=== PATIENT | male | born 1975 | race Caucasian/White ===

== ENCOUNTER 2024-07-22 13:45 | Emergency (ER) | payer OTHER, SELFPAY ==
[2024-07-22 13:54] VITALS: BP 125/79; PULSE 73; TEMP 36.8; O2SAT 96; BMI 25.1
--- NOTE | 2024-07-22 14:04 | ED.GENADUL1 ---
HPI HPI - General Adult General Chief complaint: Wound/Laceration Stated complaint: FINGER LACERATION - [facility] Time Seen by Provider: 07/22/24 13:48 Mode of arrival: walk-in History of Present Illness HPI narrative: The patient is a 48-year-old male who presents to the emergency department today for evaluation concerns for finger laceration. He endorses he cut his finger on a piece of metal while at work. He does not know the date of his last tetanus. Denies any paresthesias, weakness, loss of movement to the affected digit. History of diabetes and states he is on metformin for this. Otherwise denies any significant medical or surgical history. Related Data Home Medications ?Medication ?Instructions ?Recorded ?Confirmed aripiprazole 5 mg tablet mg 07/22/24 atorvastatin 10 mg tablet mg 07/22/24 celecoxib 200 mg capsule mg 07/22/24 losartan 50 mg tablet mg 07/22/24 metformin 1,000 mg tablet mg 07/22/24 omeprazole 20 mg capsule,delayed mg 07/22/24 release Allergies Allergy/AdvReac Type Severity Reaction Status Date / Time aspirin Allergy Swelling Verified 07/22/24 13:54 of Lip/Tongue/Throat Review of Systems ROS Status of ROS 10 or more systems reviewed and unremarkable except as noted in history and below PFSH PFSH Social History Little interest or pleasure in doing things: not at all Feeling down, depressed, or hopeless: not at all Exam Narrative Exam Narrative: Constituational: Awake/ alert, no apparent distress, well hydrated HENMT: normocephalic, external ears normal, moist oral mucous membranes and oropharynx normal Eyes: EOMI and conjunctivae normal Neck: ROM intact Chest: inspection of chest normal Respiratory: Normal respiratory effort MSK:+approx 2cm C shapped laceration to dorsal aspect of PIP of digit of R hand, gross/fine motor movement intact to all digits of R hand, +NVI Skin: To second digit of R hand as above Neuro: no focal deficits Psych: mental status grossly normal Constitutional Vital Signs, click to edit/add: Last Vital Signs Temp 98.3 F 07/22/24 13:54 Pulse 73 07/22/24 13:54 Resp 16 07/22/24 13:54 BP 125/79 07/22/24 13:54 Pulse Ox 96 07/22/24 13:54 O2 Del Method Room Air 07/22/24 13:54 Course Vital Signs Vital signs: Vital Signs Temperature 98.3 F 07/22/24 13:54 Pulse Rate 73 07/22/24 13:54 Respiratory Rate 16 07/22/24 13:54 Blood Pressure 125/79 07/22/24 13:54 Pulse Oximetry 96 07/22/24 13:54 Oxygen Delivery Method Room Air 07/22/24 13:54 Temperature 98.3 F 07/22/24 13:54 Pulse Rate 73 07/22/24 13:54 Respiratory Rate 16 07/22/24 13:54 Blood Pressure 125/79 07/22/24 13:54 Pulse Oximetry 96 07/22/24 13:54 Oxygen Delivery Method Room Air 07/22/24 13:54 Medical Decision Making MDM Narrative Medical decision making narrative: Patient is a well-appearing 48-year-old male who presented to the emergency department today for evaluation concerns for a laceration to his right index finger 2/2 cutting it on a piece of metal while at work today. Initial examination without any concerning neurovascular motor findings on exam. Wound care provided and subsequent wound closure and hemostasis achieved with placement of sutures. No clinical evidence of infection or foreign body present on wound. Please see procedure note above for details. Discussed this with the patient including recommendations for supportive care following finger laceration and placement of sutures. Discussed recommendations for suture removal. Tetanus updated in the ER today. Advised on follow-up with patient's primary care provider for reevaluation. Discussed signs and symptoms of any worsening condition including infection and when to consider reevaluation by the emergency department. Patient verbalized an understanding of this and is agreeable with the plan to be discharged home. Medical Records Medical records reviewed: Yes I reviewed the patient's medical records Discharge Plan Discharge Chief Complaint: Wound/Laceration Clinical Impression: Laceration Patient Disposition: Home, Self-Care Prescriptions / Home Meds: No Action losartan 50 mg tablet celecoxib 200 mg capsule atorvastatin 10 mg tablet metformin 1,000 mg tablet omeprazole 20 mg capsule,delayed release(DR/EC) aripiprazole 5 mg tablet Print Language: Urdu Instructions: Finger Laceration (ED) Additional Instructions: Keep sutures clean and dry. Cover with Vaseline and bandage for the next 48 hours. Okay to wash your hands/shower and pat dry. Monitor for any signs and symptoms of infection as discussed. Recommend suture removal in 1 week. Follow-up with your primary care provider for reevaluation as discussed. Work avoid lifting anything over 10 pounds to the affected finger. Additionally follow-up with occupational health for reevaluation as discussed. Referrals: NOEMI COURTNEY [Primary Care Provider, [facility]] - 1 week Procedures ED Laceration Laceration Laceration 1: Site: hand (index finger) Side (if applicable): right Size (cm): 2 Description: flap and clean Depth: simple, single layer Anesthetic used: lidocaine 1% Anesthesia technique: local infiltration Amount (ml): 3 Pre-repair: wound explored and irrigated extensively Skin layer closed with: Vicryl Size (cm): 5-0 Number of sutures: 3 Technique: simple, interrupted Additional comments: Excellent wound approximation, patient tolerated procedure well, patient remains neurovascularly intact.
[2024-07-22] MEDS: LIDOCAINE HCL 1% 100 MG/10 ML MDV INJ (14:18)
[2024-07-22] MEDS: ADACEL DIPH,PERTUSS(ACELL),TET VAC/PF 0.5 ML ADULT SYRINGE IM (14:51)
[2024-07-22] MEDS: BACITRACIN 0.9 GM PACKET 1 PACKET TOPICAL (14:52)
== END 2024-07-22 15:08 | disposition home or self-care (01) ==
PROVIDERS: Emergency Provider Emergency Medicine; PCP Family Medicine
DX: S61.210A Laceration without foreign body of right index finger without damage to nail, initial encounter (principal); W26.8XXA Contact with other sharp object(s), not elsewhere classified, initial encounter; Z23 Encounter for immunization
CPT/HCPCS: 12001; 90471; 90715; 99283